=== PATIENT | male | born 2000 ===

== ENCOUNTER 2022-12-21 22:54 | Emergency (ER) | payer SELFPAY ==
[2022-12-22 01:56] LABS: CARBON DIOXIDE,CO2 25.6 mmol/L (21.0-32.0); POTASSIUM,K 4.4 mmol/L (3.5-5.1)
[2022-12-22] MEDS ORDERED: Ibuprofen Susp 100 MG/5 ML 10 ML UD Cup PO ONE (02:25)
== END 2022-12-22 02:36 | disposition home or self-care (01) ==
LOC: MW.ED 22:54
DX: R09.1 Pleurisy (principal)
CPT/HCPCS: 36415; 71046; 80053; 84484; 85025; 93005; 99285; A9270; 93010; 99283

== ENCOUNTER 2023-02-01 01:58 | Emergency (ER) | payer SELFPAY ==
[2023-02-01] MEDS ORDERED: Sodium Chloride 0.9% 10 ML Syringe FLUSH PRN (02:17)
[2023-02-01] MEDS ORDERED: Sodium Chloride 0.9% 2.5 ML Syringe FLUSH PRN (02:17)
[2023-02-01] MEDS ORDERED: Aspirin 81 MG Tab.Chew PO ONE (02:17)
[2023-02-01] MEDS ORDERED: Famotidine 20 MG/2 ML SDV IVPUSH ONE (02:17)
[2023-02-01] MEDS ORDERED: Diazepam 2 MG Tab PO ONE (02:17)
[2023-02-01 02:59] LABS: BLOOD UREA NITROGEN,BUN 12 mg/dL (7.0-18.0); CARBON DIOXIDE,CO2 25.1 mmol/L (21.0-32.0); CHLORIDE,CL 99 mmol/L (98-107); GLUCOSE RANDOM 93 mg/dL (74-106); POTASSIUM,K 3.7 mmol/L (3.5-5.1); SODIUM,NA 136 mmol/L (136-148)
[2023-02-01 03:01] LABS: ESTIMATED GFR 130 mL/min (>60)
== END 2023-02-01 03:44 | disposition home or self-care (01) ==
LOC: MW.ED 01:58
DX: R07.89 Other chest pain (principal)
CPT/HCPCS: 36415; 71045; 80053; 84443; 84484; 85025; 85379; 93005; 96374; 99285; A9270; J3490; 93010; 99283

== ENCOUNTER 2023-02-16 19:59 | Emergency (ER) | payer SELFPAY ==
[2023-02-16] MEDS ORDERED: Sodium Chloride 0.9% 10 ML Syringe FLUSH PRN (20:02)
[2023-02-16] MEDS ORDERED: Sodium Chloride 0.9% 2.5 ML Syringe FLUSH PRN (20:02)
[2023-02-16] MEDS ORDERED: Ketorolac 30 MG/ML SDV IVPUSH ONE (20:12)
[2023-02-16] MEDS ORDERED: Sodium Chloride 0.9% 1,000 ML IV ONE (20:12)
[2023-02-16 20:20] LABS: BASOPHILS PERCENT AUTO 0.1 % (0.0-1.5); EOSINOPHILS ABSOLUTE AUTO 0.1 K/uL (0.0-0.7); EOSINOPHILS PERCENT AUTO 0.7 % (0.0-7.0); HEMATOCRIT 41.8 % (38.0-50.0); HEMOGLOBIN 14.7 g/dL (13.0-17.0); LYMPHOCYTES ABSOLUTE AUTO 3.6 K/uL (0.6-2.4); LYMPHOCYTES PERCENT AUTO 41.8 % (16.0-40.0); MEAN CORPUSCULAR HEMOGLOBIN 30.7 pg (27.0-32.0); MEAN CORPUSCULAR HGB CONC 35.2 g/dL (31.0-37.0); MEAN CORPUSCULAR VOLUME 87.3 fL (80.0-98.0); MONOCYTES ABSOLUTE AUTO 0.6 K/uL (0.0-0.8); MONOCYTES PERCENT AUTO 6.5 % (0.0-15.0); NEUTROPHILS ABSOLUTE AUTO 4.4 K/uL (1.4-5.7); NEUTROPHILS PERCENT AUTO 50.9 % (48.0-80.0); NRBC ABSOLUTE 0 K/uL; PLATELET COUNT,PLT 371 K/uL (150-400); RED BLOOD CELL COUNT 4.79 M/uL (4.50-5.90); WHITE BLOOD CELL COUNT,WBC 8.55 K/uL (4.0-11.0)
[2023-02-16 20:49] LABS: A/G RATIO 1.2 (0.9-1.6); ALANINE AMINOTRANSFERASE,ALT 76 IU/L (14-63); ALBUMIN 4.4 g/dL (3.4-5.0); ALKALINE PHOSPHATASE 79 U/L (46-116); ASPARTATE AMNIOTRANSFERASE,AST 29 IU/L (15-37); BILIRUBIN TOTAL 2.3 mg/dL (0.2-1.0); BLOOD UREA NITROGEN,BUN 6 mg/dL (7.0-18.0); CARBON DIOXIDE,CO2 24.7 mmol/L (21.0-32.0); CHLORIDE,CL 101 mmol/L (98-107); CREATININE 0.8 mg/dL (0.8-1.3); EST CRCL DRUG DOSING (CG) 156.88 mL/min; GLUCOSE RANDOM 79 mg/dL (74-106); POTASSIUM,K 3.8 mmol/L (3.5-5.1); PROTEIN TOTAL,TP 8.2 g/dL (6.4-8.2); SODIUM,NA 138 mmol/L (136-148); TSH ULTRASENSITIVE 1.48 uIU/mL (0.36-3.74)
[2023-02-16 20:50] LABS: ESTIMATED GFR 130 mL/min (>60)
== END 2023-02-16 21:03 | disposition home or self-care (01) ==
LOC: MW.ED 19:59
DX: R07.9 Chest pain, unspecified (principal); F41.9 Anxiety disorder, unspecified
CPT/HCPCS: 36415; 71045; 80053; 84443; 84484; 85025; 85379; 93005; 96361; 96374; 99285; J1885; J3490; J7030; 93010; 99284

== ENCOUNTER 2023-02-23 21:15 | Emergency (ER) | payer SELFPAY ==
[2023-02-23] MEDS ORDERED: Sodium Chloride 0.9% 2.5 ML Syringe FLUSH PRN (21:41)
[2023-02-23] MEDS ORDERED: Ketorolac 30 MG/ML SDV IVPUSH ONE (21:41)
[2023-02-23] MEDS ORDERED: Prochlorperazine 10 MG/2 ML SDV IVPUSH ONE (21:41)
[2023-02-23] MEDS ORDERED: Dexamethasone 10 MG/ML SDV IVPUSH ONE (21:41)
[2023-02-23] MEDS ORDERED: Sodium Chloride 0.9% 10 ML Syringe FLUSH PRN (21:41)
[2023-02-23] MEDS ORDERED: Sodium Chloride 0.9% 1,000 ML IV ONE (21:41)
[2023-02-23 22:13] LABS: BASOPHILS PERCENT AUTO 0.3 % (0.0-1.5); EOSINOPHILS ABSOLUTE AUTO 0.1 K/uL (0.0-0.7); EOSINOPHILS PERCENT AUTO 0.9 % (0.0-7.0); HEMATOCRIT 40.7 % (38.0-50.0); HEMOGLOBIN 14.1 g/dL (13.0-17.0); LYMPHOCYTES ABSOLUTE AUTO 3.6 K/uL (0.6-2.4); LYMPHOCYTES PERCENT AUTO 47.7 % (16.0-40.0); MEAN CORPUSCULAR HEMOGLOBIN 30.7 pg (27.0-32.0); MEAN CORPUSCULAR HGB CONC 34.6 g/dL (31.0-37.0); MEAN CORPUSCULAR VOLUME 88.5 fL (80.0-98.0); MONOCYTES ABSOLUTE AUTO 0.6 K/uL (0.0-0.8); MONOCYTES PERCENT AUTO 7.4 % (0.0-15.0); NEUTROPHILS ABSOLUTE AUTO 3.3 K/uL (1.4-5.7); NEUTROPHILS PERCENT AUTO 43.7 % (48.0-80.0); NRBC ABSOLUTE 0 K/uL; PLATELET COUNT,PLT 350 K/uL (150-400); WHITE BLOOD CELL COUNT,WBC 7.53 K/uL (4.0-11.0)
[2023-02-23 22:49] LABS: A/G RATIO 1.2 (0.9-1.6); ALBUMIN 4.1 g/dL (3.4-5.0); BILIRUBIN TOTAL 1.8 mg/dL (0.2-1.0); CALCIUM 9.3 mg/dL (8.5-10.1); CARBON DIOXIDE,CO2 25.9 mmol/L (21.0-32.0); CREATININE 0.8 mg/dL (0.8-1.3); EST CRCL DRUG DOSING (CG) 156.88 mL/min; POTASSIUM,K 3.9 mmol/L (3.5-5.1); PROTEIN TOTAL,TP 7.5 g/dL (6.4-8.2); TSH ULTRASENSITIVE 1.24 uIU/mL (0.36-3.74)
== END 2023-02-23 23:13 | disposition home or self-care (01) ==
LOC: MW.ED 21:15
DX: G43.909 Migraine, unspecified, not intractable, without status migrainosus (principal)
CPT/HCPCS: 36415; 70450; 80053; 84443; 85025; 96361; 96374; 96375; 99284; J0780; J1100; J1885; J3490; J7030